=== PATIENT | female | born 1960 | race Caucasian/White ===

== ENCOUNTER → 2018-12-08 | Outpatient (CLI) | payer OTHER ==
[~2018-12-08] MED LIST: Aspirin EC81 MG PO; CEPH500 PO; CYCL10 PO; DAILY VALUE1 EACH PO; FEXO60 PO; FISH OIL 1,2001 EAC1 PO; FLUT.05NI; HYDR1TAB94 PO; MULVITMIND PO; OXYACE5T PO; Prinivil10 MG PO; RXOXYACE PO; SUDAFED PO; Zofran Odt8 MG SL
[2018-12-08 18:39] LABS: Alanine Aminotransfer (ALT/SGP 25 U/L (12-78); Alk Phos 85 U/L (50-136); Anion Gap 5 mmol/L (6-16); Aspartate Aminotrans (AST/SGOT 12 U/L (12-37); Bilirubin, Total 0.2 mg/dL (0.1-1.0); Blood Urea Nitrogen 14 mg/dL (8-24); Bun/Creatinine Ratio 18.1 (12.0-20.0); CO2, Blood 27 mmol/L (21-32); Calcium, Blood 9.3 mg/dL (8.5-10.1); Chloride, Blood 108 mmol/L (98-108); Creatinine, Blood 0.77 mg/dL (0.40-1.00); Globulin, Blood 4.1 g/dL (2.2-4.0); Glomerular Filtration Rate >60 (60-); Glucose, Blood 92 mg/dL (70-99); Magnesium, Blood 2.3 mg/dL (1.6-2.4); Potassium, Blood 4.1 mmol/L (3.5-5.5); Sodium, Blood 140 mmol/L (136-145); Total Protein, Blood 8.1 g/dL (6.4-8.2)
== END ==
LOC: LAB 18:07 → LAB SHORT 18:07
PROVIDERS: Nurse Practitioner Family
DX: I45.81 Long QT syndrome (principal)
CPT/HCPCS: 80053; 83735

== ENCOUNTER → 2019-03-31 | Outpatient (CLI) | payer OTHER | LOC: LAB SHORT 17:44 → LAB 17:44 | DX: N39.0 Urinary tract infection, site not specified (principal) | CPT/HCPCS: 87077; 87086; 87186 ==

== ENCOUNTER → 2019-04-19 | Outpatient (CLI) | payer OTHER | LOC: LAB SHORT 18:05 → LAB 18:05 | DX: N39.0 Urinary tract infection, site not specified (principal) | CPT/HCPCS: 86803; 87086 ==

== ENCOUNTER → 2019-06-28 | Outpatient (CLI) | payer OTHER | END | disposition home or self-care (01) | LOC: LAB 15:00 → LAB SHORT 15:00 | DX: N39.0 Urinary tract infection, site not specified (principal) | CPT/HCPCS: 87086 ==

== ENCOUNTER → 2020-05-03 | Outpatient (CLI) | payer OTHER | END | disposition home or self-care (01) | LOC: LAB 15:00 → LAB SHORT 15:00 | DX: R31.9 Hematuria, unspecified (principal) | CPT/HCPCS: 87086 ==

== ENCOUNTER 2022-12-27 05:44 | Inpatient (IN) | payer OTHER ==
[~2022-12-27] VITALS: Ht 165.1 cm; Wt 59.0 kg
[~2022-12-27 05:44] MED LIST changes: +LIDO700A20 TOP; -Prinivil10 MG PO; +ZESTRIL40 M1 PO
[2022-12-27 06:52] LABS: BASOPHILS ABSOLUTE AUTO 0.04 K/mm3 (0.00-0.23); BASOPHILS PERCENT AUTO 0 % (0-2); EOSINOPHILS ABSOLUTE AUTO 0.08 K/mm3 (0.00-0.68); EOSINOPHILS PERCENT AUTO 0 % (0-6); Hematocrit 25.6 % (33.0-51.0); Hemoglobin 8.2 g/dL (11.5-16.0); IMMATURE GRAN ABSOLUTE AUTO 0.16 K/mm3 (0.00-0.10); IMMATURE GRAN PERCENT AUTO 1 % (0-1); LYMPHOCYTES ABSOLUTE AUTO 0.82 K/mm3 (0.84-5.20); LYMPHOCYTES PERCENT AUTO 4 % (21-46); MONOCYTES ABSOLUTE AUTO 1.12 K/mm3 (0.16-1.47); MONOCYTES PERCENT AUTO 5 % (4-13); Mean Corpuscular HGB 25.9 pg (26.0-34.0); Mean Corpuscular Volume 81 fL (80-100); Mean Platelet Volume 9.7 fL (9.1-12.4); NEUTROPHILS ABSOLUTE AUTO 20.76 K/mm3 (1.96-9.15); NEUTROPHILS PERCENT AUTO 90 % (41-73); Platelet Count 650 K/mm3 (150-400); RDW Coefficient Variation 20.2 % (11.7-14.2); RDW Standard Deviation 59.9 fL (35.1-46.3); Red Blood Cell Count 3.17 M/mm3 (3.80-5.20); White Blood Cell Count 22.98 K/mm3 (4.00-11.30)
[2022-12-27 07:06] LABS: Albumin, Blood 1.7 g/dL (3.4-5.0); Albumin/Globulin Ratio 0.3 (0.8-1.8); Bilirubin, Total 0.4 mg/dL (0.1-1.0); Bun/Creatinine Ratio 41.3 (12.0-20.0); Calcium, Blood 9.7 mg/dL (8.5-10.1); Creatinine, Blood 0.94 mg/dL (0.40-1.00); Globulin, Blood 5.1 g/dL (2.2-4.0); Potassium, Blood 3.1 mmol/L (3.5-5.5); Total Protein, Blood 6.8 g/dL (6.4-8.2)
[2022-12-27 07:29] LABS: Influenza A, PCR NEGATIVE (NEGATIVE); Influenza B, PCR NEGATIVE (NEGATIVE); Resp Syncytial Virus, PCR NEGATIVE (NEGATIVE); SARS-Cov-2 (COVID-19) PCR, MMC NEGATIVE (NEGATIVE)
[2022-12-27] MEDS ORDERED: LOSA25 PO (11:22)
[2022-12-27] MEDS ORDERED: HYDCHL25 PO (11:22)
[2022-12-27] MEDS ORDERED: TRAM50 PO (11:22)
[2022-12-27] MEDS ORDERED: ATOR40TA PO (11:23)
[2022-12-27] MEDS ORDERED: THERA-D2000 UNIT PO (11:23)
--- NOTE | 2022-12-27 17:14 | NUR ---
Patient admitted for Pulmonary abscess. Mass in MARILY, Hospitalist discussed results with patient & . Lung sounds absent in MAR[facility], wheezing/dim noted t/o lungs. Patient has productive cough w/ pink/brown sputum. Sputum culture sent to lab. Sats stable on RA. Vitals stable, temporal temp this afternoon was 101, rechecked oral temp and temp was 100. NS fluids infusing. IV Unasyn ABX given. Lactate this morning was 3.2, this afternoon Lactic critical result of 3.8, PROCESS CONTROL SUPERVISOR notified. Will continue plan of care.
--- NOTE | 2022-12-28 05:02 | NUR ---
SHIFT NOTE PATIENT IS ALERT AND ORIENTED, STAND BY WITH AMBULATION TO MONITOR LINES. LUNG SOUND VERY DIM AND ABSENT OVER THE SHREYA LOBE, STRONG PRODUCTIVE COUGH WITH PINK TINGES SPUTUM. CHRONIC BACK PAIN TREATED WITH PRN ULTRAM WITH GOOD RESULTS. NO OTHER ISSUES TO REPORT. WILL CONT TO MONITOR.
[2022-12-28 06:04] LABS: Hematocrit 21.9 % (33.0-51.0); Mean Corpuscular HGB 25.8 pg (26.0-34.0); Mean Corpuscular Volume 81 fL (80-100); Mean Platelet Volume 9.2 fL (9.1-12.4); Platelet Count 587 K/mm3 (150-400); RDW Coefficient Variation 20.4 % (11.7-14.2); RDW Standard Deviation 59.4 fL (35.1-46.3); Red Blood Cell Count 2.71 M/mm3 (3.80-5.20); White Blood Cell Count 22.36 K/mm3 (4.00-11.30)
[2022-12-28 06:36] LABS: Albumin, Blood 1.3 g/dL (3.4-5.0); Albumin/Globulin Ratio 0.3 (0.8-1.8); Bilirubin, Total 0.5 mg/dL (0.1-1.0); Bun/Creatinine Ratio 30.5 (12.0-20.0); Calcium, Blood 9.9 mg/dL (8.5-10.1); Creatinine, Blood 0.62 mg/dL (0.40-1.00); Globulin, Blood 4.4 g/dL (2.2-4.0); Potassium, Blood 3.5 mmol/L (3.5-5.5); Total Protein, Blood 5.7 g/dL (6.4-8.2)
[2022-12-28 13:13] LABS: Hematocrit 21.4 % (33.0-51.0); Hemoglobin 6.9 g/dL (11.5-16.0)
--- NOTE | 2022-12-28 18:20 | NUR ---
SHIFT SUMMARY PT A&OX4 AND IN PLEASENT MOOD T/O SHIFT. TOLERATING PO INTAKE WELL. AMBULATING IND. VSS. IN TO SEE PT DURING VISITING HOURS. BLOOD TRANSFUSING AT THIS TIME. CALL LIGHT W/IN REACH.
[2022-12-28 20:20] LABS: Hematocrit 24.1 % (33.0-51.0); Hemoglobin 7.7 g/dL (11.5-16.0)
--- NOTE | 2022-12-29 05:35 | NUR ---
SHIFT SUMMARY NO OVERNIGHT EVENTS. H&H STABLE AFTER I UNIT RBC 12/28. PT DENIES SOB, HAS COUGH WITH BEIGE TINGED SPUTUM. CONTINUES IV ABX AND FLUIDS. REPORTS BACK PAIN, SEE EMR FOR TRAMADOL ADMINISTRATION. PT AMBULATING TO BATHROOM SBA. PT ORIENTED X4, ABLE TO MAKE NEEDS KNOWN. CALL LIGHT IN REACH.
[2022-12-29 05:52] LABS: BASOPHILS ABSOLUTE AUTO 0.03 K/mm3 (0.00-0.23); BASOPHILS PERCENT AUTO 0 % (0-2); EOSINOPHILS ABSOLUTE AUTO 0.13 K/mm3 (0.00-0.68); EOSINOPHILS PERCENT AUTO 1 % (0-6); Hematocrit 23.4 % (33.0-51.0); Hemoglobin 7.5 g/dL (11.5-16.0); IMMATURE GRAN ABSOLUTE AUTO 0.45 K/mm3 (0.00-0.10); IMMATURE GRAN PERCENT AUTO 2 % (0-1); LYMPHOCYTES ABSOLUTE AUTO 1.38 K/mm3 (0.84-5.20); LYMPHOCYTES PERCENT AUTO 7 % (21-46); MONOCYTES ABSOLUTE AUTO 0.87 K/mm3 (0.16-1.47); MONOCYTES PERCENT AUTO 4 % (4-13); Mean Corpuscular HGB 25.9 pg (26.0-34.0); Mean Corpuscular HGB Conc 32.1 g/dL (31.5-36.5); Mean Corpuscular Volume 81 fL (80-100); Mean Platelet Volume 9.4 fL (9.1-12.4); NEUTROPHILS ABSOLUTE AUTO 16.87 K/mm3 (1.96-9.15); NEUTROPHILS PERCENT AUTO 85 % (41-73); Platelet Count 574 K/mm3 (150-400); RDW Coefficient Variation 19.9 % (11.7-14.2); White Blood Cell Count 19.73 K/mm3 (4.00-11.30)
[2022-12-29 16:00] LABS: Hematocrit 23.7 % (33.0-51.0); Hemoglobin 7.6 g/dL (11.5-16.0)
--- NOTE | 2022-12-29 17:55 | NUR ---
SHIFT SUMMARY PT A&O4 AND IN PLEASENT MOOD T/O SHIFT. TOLERATING MIN AMOUNT OF ORAL INTAKE, PT C/O FEELING WEAK WHILE ATTEMPTING TO EAT PT STATES "THIS IS PROBABLY WHY I HAVE RECENTLY LOST A BUNCH OF WEIGHT". AMB SBA/IND. PASSED HOME O2 EVAL. PLAN TO RECHECK H&H IN AM THEN POSSIBLE DC IF STABLE. CALL LIGHT WITH IN REACH. C/O PAIN MEDICATED PER EMAR. PT STATES SHE IS NO LONGER COUGHING UP BLOOD-SPUTUM YELLOW AT THIS TIME.
[2022-12-29] MEDS ORDERED: FLUTICASONE-SA1 EAC9 INH (18:29)
--- NOTE | 2022-12-30 04:47 | NUR ---
SHIFT SUMMARY NO OVERNIGHT EVENTS. PT REPORTING BACK PAIN, ADMINISTERED PRN FLEXERIL AND TRAMADOL. AMBULATING SBA TO BATHROOM. CONTINUES IV ABX. PT REMAINS ON ROOM AIR. PT HAS PRODUCTIVE COUGH, LIGHT BROWN SPUTUM. H&H STABLE. PT ORINETED X4, ABLE TO MAKE NEEDS KNOWN, CALL LIGHT IN REACH.
[2022-12-30 08:43] LABS: BASOPHILS ABSOLUTE AUTO 0.04 K/mm3 (0.00-0.23); BASOPHILS PERCENT AUTO 0 % (0-2); EOSINOPHILS ABSOLUTE AUTO 0.06 K/mm3 (0.00-0.68); EOSINOPHILS PERCENT AUTO 0 % (0-6); Hemoglobin 7.9 g/dL (11.5-16.0); IMMATURE GRAN ABSOLUTE AUTO 0.34 K/mm3 (0.00-0.10); IMMATURE GRAN PERCENT AUTO 2 % (0-1); LYMPHOCYTES ABSOLUTE AUTO 1.33 K/mm3 (0.84-5.20); LYMPHOCYTES PERCENT AUTO 7 % (21-46); MONOCYTES ABSOLUTE AUTO 1.08 K/mm3 (0.16-1.47); MONOCYTES PERCENT AUTO 6 % (4-13); Mean Corpuscular HGB 25.4 pg (26.0-34.0); Mean Corpuscular HGB Conc 31.6 g/dL (31.5-36.5); Mean Corpuscular Volume 80 fL (80-100); NEUTROPHILS ABSOLUTE AUTO 16.07 K/mm3 (1.96-9.15); NEUTROPHILS PERCENT AUTO 85 % (41-73); Platelet Count 595 K/mm3 (150-400); RDW Standard Deviation 58.2 fL (35.1-46.3); Red Blood Cell Count 3.11 M/mm3 (3.80-5.20); White Blood Cell Count 18.92 K/mm3 (4.00-11.30)
[2022-12-30 09:07] LABS: Albumin, Blood 1.4 g/dL (3.4-5.0); Albumin/Globulin Ratio 0.3 (0.8-1.8); Bilirubin, Total 0.5 mg/dL (0.1-1.0); Bun/Creatinine Ratio 18.4 (12.0-20.0); Calcium, Blood 9.3 mg/dL (8.5-10.1); Creatinine, Blood 0.54 mg/dL (0.40-1.00); Globulin, Blood 4.5 g/dL (2.2-4.0); Potassium, Blood 3.7 mmol/L (3.5-5.5); Total Protein, Blood 5.9 g/dL (6.4-8.2)
[2022-12-30] MEDS ORDERED: AMOX875 PO (12:11)
[2022-12-30] MEDS ORDERED: GUAI600T33 PO (12:12)
[2022-12-30] MEDS ORDERED: NICO21TP TOP (12:12)
[2022-12-30] MEDS ORDERED: VISBIOME 112.51 EACH PO (12:13)
--- NOTE | 2022-12-30 14:50 | NUR ---
DISCHARGE NOTE- PT AND SO WERE GIVEN VERBAL AND WRITTEN DISCHARGE INSTRUCTIONS AND ACKNOWLEDGED UNDERSTANDING OF THEM, THE PT STATED SHE WILL CALL TO SCHEDULE WITH HER PCP. APPOINTMENT SCHEDULED WITH PULMONOLOGY PRIOR TO DISCHARGE 01-07-23 AT 0830. PT IS AWARE. THE OFFICE WILL CALL IF THEY NEED TO RESCHEDULE. PT IV WAS DC'D BY RN STUDENT PRIOR TO DISCHARGE. PT WAS ESCORTED OUT VIA WC BY THE [facility] NO S&S OF DISTRESS NOTED AT THE TIME OF DISCHARGE.
== END 2022-12-30 14:00 | disposition home or self-care (01) | DRG 871 ==
LOC: ER 05:44 → MEDS 09:50
PROVIDERS: Emergency Medicine; Family Medicine Adult Medicine; Nurse Practitioner Acute Care; Student in an Organized Health Care Education/Training Program; ADMIT Hospitalist
PROC: 3E03329 Introduction of Other Anti-infective into Peripheral Vein, Percutaneous Approach (ICD-10-PCS; principal; 2022-12-27)
PROC: 30233N1 Transfusion of Nonautologous Red Blood Cells into Peripheral Vein, Percutaneous Approach (ICD-10-PCS; 2022-12-28)
DX: A41.3 Sepsis due to Hemophilus influenzae (principal); J10.08 Influenza due to other identified influenza virus with other specified pneumonia; J85.1 Abscess of lung with pneumonia; J44.0 Chronic obstructive pulmonary disease with (acute) lower respiratory infection; E87.1 Hypo-osmolality and hyponatremia; E87.20 Acidosis, unspecified; C34.12 Malignant neoplasm of upper lobe, left bronchus or lung; Z66 Do not resuscitate; Z20.822 Contact with and (suspected) exposure to COVID-19; M54.9 Dorsalgia, unspecified; G89.29 Other chronic pain; E87.6 Hypokalemia; R91.1 Solitary pulmonary nodule; D63.8 Anemia in other chronic diseases classified elsewhere; I10 Essential (primary) hypertension; F17.210 Nicotine dependence, cigarettes, uncomplicated; Z90.710 Acquired absence of both cervix and uterus; Z98.890 Other specified postprocedural states
CPT/HCPCS: 0241U; 36415; 71046; 71260; 80053; 83605; 83735; 85014; 85018; 85025; 85027; 86850; 86900; 86901; 86923; 87040; 87070; 87077; 87185; 87205; 93005; 93010; 94760; 94761; 96365; 99285-25; A9270; J0295; J7030; J7050; P9016; Q9967

== ENCOUNTER 2023-06-11 10:02 | Day surgery (SDC) | payer OTHER ==
[2023-06-11] VITALS (45 sets, daily range): BP systolic 96–169; BP diastolic 25–96
[~2023-06-11] VITALS: Ht 165.1 cm; Wt 58.0 kg
[~2023-06-11 10:02] MED LIST changes: +AMOX875 PO; +ATOR40TA PO; +FLUTICASONE-SA1 EAC9 INH; +GUAI600T33 PO; +HYDACE10B PO; +HYDCHL25 PO; +Hair, Skin & N1 EACH PO; +LOSA25 PO; +NICO21TP TOP; +THERA-D2000 UNIT PO; +TRAM50 PO; +VISBIOME 112.51 EACH PO
[2023-06-11] MEDS ORDERED: FERSU300 PO (11:12)
[2023-06-11] MEDS ORDERED: B-12500 MC2 PO (11:12)
[2023-06-11] MEDS ORDERED: CETI5 PO (11:14)
[2023-06-11] MEDS ORDERED: PSEUDOEPHEDRINE30 M1 PO (11:14)
--- NOTE | 2023-06-11 11:32 | NUR ---
Wheelchaired into Day Surgery History, Chart, Medications and Allergies reviewed before start of procedure. Pre-Op teaching done. Pt verbalizes understanding. Patient States Post-Procedure ride home has been arranged.
--- NOTE | 2023-06-11 12:28 | NUR ---
06/11/23 1228 Don Narvaez 2% LIDOCAINE JELLY WITH 5 DROPS MALATHI-SYNEPHRINE 0.5% APPLIED TO BILATERAL NARES WITH COTTON TIP APPLICATOR. 2% LIDOCAINE SOLUTION SPRAYED TO OROPHARYNX USING ATOMIZATION DEVICE UNTIL GAG REFLEX GONE. HISTORY, CHART, MEDICATIONS AND ALLERGIES REVIEWED BEFORE START OF PROCEDURE. PATIENT CONFIRMS NPO STATUS AND AGREES WITH SCHEDULED PROCEDURE. 3-LEAD EKG REVIEWED WITH PHYSICIAN PRIOR TO START OF PROCEDURE. MONITOR INTACT WITH CONTINUOUS PULSE OXIMETRY,CAPNOGRAPHY, 3-LEAD EKG, INTERMITTENT BP. SUPPLEMENTAL O2 TO BE TITRATED THROUGHOUT PROCEDURE TO MAINTAIN O2 SATURATION ABOVE 90%. PATIENT DETERMINED TO BE ASA APPROPRIATE FOR PROPOFOL SEDATION PRIOR TO START OF PROCEDURE BY
--- NOTE | 2023-06-11 13:36 | NUR ---
REPORT RECIEVED. PT SITTING UP IN BED WITH NEBULIZER. AT BEDSIDE. PT C/O HEADACHE AND THIRST. MOUTH SWAB GIVEN FOR COMFORT AT THIS TIME
--- NOTE | 2023-06-11 13:53 | NUR ---
O2 SATS IN UPPER 80S, LOW 90S. SUPPLIMENTAL O2 APPLIED AAT 2L NC. GAG REFLEX TESTED AND APPEARS TO BE PRESENT AT THIS TIME
--- NOTE | 2023-06-11 14:15 | NUR ---
DR DEVINE CONSULTED REGARDING PTS HEADACHE. PO TYLENOL ORDERED NOW. PT TOLERATING SIPS OF WATER NOW, GAG REFLEX TESTED. ON 1L NC O2 SAT 97%
--- NOTE | 2023-06-11 14:32 | NUR ---
O2 REMOVED. O2 SATS 97-100% AT THIS TIME. DRINKING WATER WELL, NO COUGHING. TOLERING PUDDING. Discharge instructions reviewed with patient AND . Patient verbalizes understanding. Copy given to patient to take home.
--- NOTE | 2023-06-11 14:46 | NUR ---
Patient up to Ambulate independently. Gait steady. PT REPORTS RELIEF UP HEADACE. DRESSING SELF. UP TO RESTROOM Discharged via wheelchair to private car for ride home.
== END 2023-06-11 14:56 | disposition home or self-care (01) ==
LOC: ORSCMMR 10:02 → ORD 11:30 → ORSCMMR 11:30
PROVIDERS: Internal Medicine Critical Care Medicine
PROC: 0BBJ8ZX Excision of Left Lower Lung Lobe, Via Natural or Artificial Opening Endoscopic, Diagnostic (ICD-10-PCS; principal; 2023-06-11 11:30)
DX: J44.9 Chronic obstructive pulmonary disease, unspecified (principal); C34.32 Malignant neoplasm of lower lobe, left bronchus or lung; R91.8 Other nonspecific abnormal finding of lung field; R04.2 Hemoptysis; Z79.899 Other long term (current) drug therapy; Z79.82 Long term (current) use of aspirin; F17.210 Nicotine dependence, cigarettes, uncomplicated
CPT/HCPCS: 87070; 87205; 88104; 88305; 88341; 88342; A9270; J0171; J2001; J2250; J2405; J2704; J7120

== ENCOUNTER 2023-07-09 13:24 | Emergency (ER) | payer OTHER | END 2023-07-09 18:51 | disposition home or self-care (01) | LOC: ER 13:24 | DX: D64.9 Anemia, unspecified (principal); R60.0 Localized edema; Z88.1 Allergy status to other antibiotic agents; Z79.899 Other long term (current) drug therapy; J44.9 Chronic obstructive pulmonary disease, unspecified; I10 Essential (primary) hypertension; F17.210 Nicotine dependence, cigarettes, uncomplicated ==

== ENCOUNTER 2023-07-30 08:57 | Emergency (ER) | payer OTHER ==
[~2023-07-30] VITALS: Ht 165.1 cm; Wt 54.4 kg
[~2023-07-30 08:57] MED LIST changes: +ACET500; +AMOCLA875 PO; +ASPI81CH PO; +B-12500 MC2 PO; +CETI5 PO; +FERSU300 PO; +FLUT1DIS5 INH; +HYDROCODONE-AC1 EA19 PO; +LISI20 PO; +MULVITA PO; +PSEU120ER; +PSEUDOEPHEDRINE30 M1 PO; +STIOLTO RESPIMAT4 G1 INH; +VITAMIN D310 MC4 PO; +ZYRTEC10 MG PO
[2023-07-30 10:09] LABS: BASOPHILS ABSOLUTE AUTO 0.02 K/mm3 (0.00-0.23); BASOPHILS PERCENT AUTO 0 % (0-2); EOSINOPHILS ABSOLUTE AUTO 0.03 K/mm3 (0.00-0.68); EOSINOPHILS PERCENT AUTO 0 % (0-6); Hematocrit 28.5 % (33.0-51.0); Hemoglobin 8.5 g/dL (11.5-16.0); IMMATURE GRAN ABSOLUTE AUTO 0.09 K/mm3 (0.00-0.10); IMMATURE GRAN PERCENT AUTO 1 % (0-1); LYMPHOCYTES ABSOLUTE AUTO 0.55 K/mm3 (0.84-5.20); LYMPHOCYTES PERCENT AUTO 5 % (21-46); MONOCYTES ABSOLUTE AUTO 0.36 K/mm3 (0.16-1.47); MONOCYTES PERCENT AUTO 3 % (4-13); Mean Corpuscular HGB 27.7 pg (26.0-34.0); Mean Corpuscular HGB Conc 29.8 g/dL (31.5-36.5); Mean Corpuscular Volume 93 fL (80-100); Mean Platelet Volume 9.3 fL (9.1-12.4); NEUTROPHILS ABSOLUTE AUTO 9.45 K/mm3 (1.96-9.15); NEUTROPHILS PERCENT AUTO 90 % (41-73); Platelet Count 420 K/mm3 (150-400); RDW Coefficient Variation 20.9 % (11.7-14.2); Red Blood Cell Count 3.07 M/mm3 (3.80-5.20)
[2023-07-30 10:22] LABS: Albumin, Blood 1.4 g/dL (3.4-5.0); Albumin/Globulin Ratio 0.4 (0.8-1.8); Bilirubin, Total 0.2 mg/dL (0.1-1.0); Bun/Creatinine Ratio 23.1 (12.0-20.0); Calcium, Blood 8.6 mg/dL (8.5-10.1); Creatinine, Blood 0.39 mg/dL (0.40-1.00); Globulin, Blood 3.8 g/dL (2.2-4.0); Magnesium, Blood 1.9 mg/dL (1.6-2.4); Potassium, Blood 2.5 mmol/L (3.5-5.5); Total Protein, Blood 5.2 g/dL (6.4-8.2)
[2023-07-30 10:48] LABS: International Normalized Ratio 1.19; Prothrombin Time Results 12.4 Sec (9.7-11.5)
[2023-07-30] MEDS ORDERED: MORP15ER PO (14:35)
[2023-07-30] MEDS ORDERED: METO10 PO (14:35)
[2023-07-30] MEDS ORDERED: PROM12.5S PR (14:35)
[2023-07-30] MEDS ORDERED: ONDA4ODT MM (14:35)
[2023-07-30] MEDS ORDERED: LEVO750 PO (15:32)
[2023-07-30 20:20] VITALS: BP 137/66
== END 2023-07-30 20:22 | disposition home or self-care (01) ==
LOC: ER 08:57
PROVIDERS: Student in an Organized Health Care Education/Training Program
DX: G89.3 Neoplasm related pain (acute) (chronic) (principal); C34.12 Malignant neoplasm of upper lobe, left bronchus or lung; J18.9 Pneumonia, unspecified organism; E86.0 Dehydration; E87.6 Hypokalemia; R11.2 Nausea with vomiting, unspecified; I10 Essential (primary) hypertension; J44.9 Chronic obstructive pulmonary disease, unspecified; E78.5 Hyperlipidemia, unspecified; D64.9 Anemia, unspecified; F17.210 Nicotine dependence, cigarettes, uncomplicated; Z88.0 Allergy status to penicillin; Z88.1 Allergy status to other antibiotic agents; Z91.012 Allergy to eggs; Z79.82 Long term (current) use of aspirin; Z79.899 Other long term (current) drug therapy
CPT/HCPCS: 71046; 80053; 83735; 85025; 85610; 85730; 93005; 93010; 94640; 94664; 96361; 96365; 96366; 96375; 96376; 99285-25; A9270; J2270; J2405; J3475; J3480; J7030; J7050

== ENCOUNTER 2023-08-11 10:17 | Emergency (ER) | payer OTHER ==
[~2023-08-11] VITALS: Ht 165.1 cm; Wt 54.4 kg
[~2023-08-11 10:17] MED LIST changes: +LEVO750 PO; +METO10 PO; +MORP15ER PO; +ONDA4ODT MM; +PROM12.5S PR
[2023-08-11 12:55] LABS: BASOPHILS ABSOLUTE AUTO 0.02 K/mm3 (0.00-0.23); BASOPHILS PERCENT AUTO 0 % (0-2); EOSINOPHILS ABSOLUTE AUTO 0.02 K/mm3 (0.00-0.68); EOSINOPHILS PERCENT AUTO 0 % (0-6); Hematocrit 23.8 % (33.0-51.0); Hemoglobin 7.3 g/dL (11.5-16.0); IMMATURE GRAN PERCENT AUTO 1 % (0-1); LYMPHOCYTES PERCENT AUTO 5 % (21-46); MONOCYTES ABSOLUTE AUTO 0.52 K/mm3 (0.16-1.47); MONOCYTES PERCENT AUTO 4 % (4-13); Mean Corpuscular HGB 28.5 pg (26.0-34.0); Mean Corpuscular HGB Conc 30.7 g/dL (31.5-36.5); Mean Corpuscular Volume 93 fL (80-100); Mean Platelet Volume 9.1 fL (9.1-12.4); NEUTROPHILS ABSOLUTE AUTO 11.52 K/mm3 (1.96-9.15); NEUTROPHILS PERCENT AUTO 90 % (41-73); Platelet Count 431 K/mm3 (150-400); RDW Coefficient Variation 21.2 % (11.7-14.2); RDW Standard Deviation 69.4 fL (35.1-46.3); Red Blood Cell Count 2.56 M/mm3 (3.80-5.20); White Blood Cell Count 12.78 K/mm3 (4.00-11.30)
[2023-08-11 13:24] LABS: Albumin, Blood 1.4 g/dL (3.4-5.0); Albumin/Globulin Ratio 0.4 (0.8-1.8); Bilirubin, Total 0.1 mg/dL (0.1-1.0); Bun/Creatinine Ratio 17.4 (12.0-20.0); Calcium, Blood 8.9 mg/dL (8.5-10.1); Creatinine, Blood 0.46 mg/dL (0.40-1.00); Globulin, Blood 3.7 g/dL (2.2-4.0); Potassium, Blood 3.5 mmol/L (3.5-5.5); Total Protein, Blood 5.1 g/dL (6.4-8.2)
[2023-08-11 14:40] VITALS: BP 125/63
[2023-08-15] MEDS ORDERED: ATOR10 PO (17:17)
[2023-08-15] MEDS ORDERED: Cyclobenzaprine5 MG PO (17:18)
[2023-08-15] MEDS ORDERED: DECADRON4 M1 (17:18)
[2023-08-15] MEDS ORDERED: TRAM50 PO (17:18)
[2023-08-15] MEDS ORDERED: Flonase 0.05% N16 GM (17:18)
[2023-08-15] MEDS ORDERED: Norco 5-325 Ta1 EACH PO (17:18)
[2023-08-15] MEDS ORDERED: ZYRTEC10 M2 PO (17:19)
[2023-08-18] MEDS ORDERED: Potassium Chlo20 ME1 PO (14:18)
[2023-08-18] MEDS ORDERED: FUROSEMIDE20 MG PO (14:18)
[2023-08-18] MEDS ORDERED: Norco 7.5-3251 EACH PO (19:12)
[2023-08-18] MEDS ORDERED: B-121000 MC7 PO (19:13)
[2023-08-22] MEDS ORDERED: ELIQUIS5 M7 PO (11:04)
[2023-08-22] MEDS ORDERED: ELIQUIS5 M2 PO (11:04)
[2023-08-22] MEDS ORDERED: FOLI1 PO (11:04)
[2023-08-22] MEDS ORDERED: Isosorbide Mono30 MG PO (11:05)
[2023-08-22] MEDS ORDERED: METO25 PO (11:06)
[2023-08-22] MEDS ORDERED: NICODERM CQ1 EA10 TOP (11:07)
[2023-08-22] MEDS ORDERED: NITR.4SL SL (11:07)
[2023-08-22] MEDS ORDERED: OMEP20ER PO (11:07)
== END 2023-08-11 14:47 | disposition home or self-care (01) ==
LOC: ER 10:17
PROVIDERS: Emergency Medicine
DX: H11.31 Conjunctival hemorrhage, right eye (principal); W01.190A Fall on same level from slipping, tripping and stumbling with subsequent striking against furniture, initial encounter; J44.9 Chronic obstructive pulmonary disease, unspecified; I10 Essential (primary) hypertension; F17.210 Nicotine dependence, cigarettes, uncomplicated
CPT/HCPCS: 70450; 80053; 85025; 93005; 93010; 99284-25